=== PATIENT | male | born 1975 | race Caucasian/White ===

== ENCOUNTER 2023-08-16 11:25 | Outpatient (CLI) | payer OTHER ==
--- NOTE | 2023-08-17 09:38 | XRAY Report ---
PROCEDURE: Finger(s) RT INDICATIONS: LACERATION OF RIGHT INDEX FINGER TECHNIQUE: AP hand, 2 views of the second finger(s) acquired. COMPARISON: None. FINDINGS: Bones: No fractures or dislocations. No suspicious bony lesions. Subtle flexion deformity of the fi nger at the first second distal interphalangeal joint. Soft tissues: No suspicious soft tissue calcifications or masses. No radiopaque performed body. IMPRESSION: 1. No acute bony abnormality or radiopaque foreign body. 2. Subtle flexion deformity of the finger at the first second distal interphalangeal joint could martir poonam tendon injury. Recommend clinical correlation and follow-up. Reviewed by: Ashutosh Pandey MD on 08/17/2023 9:37 AM PDT Approved by: Ashutosh Pandey MD on 08/17/2023 9:37 AM PDT Station ID: [id number]
== END 2023-08-16 13:09 | disposition home or self-care (01) ==
LOC: DI.N 11:25
PROVIDERS: ATTEND Physician Assistant Medical
DX: S61.210A Laceration without foreign body of right index finger without damage to nail, initial encounter (principal); M21.241 Flexion deformity, right finger joints